=== PATIENT | female | born 2000 | race African-American/Black ===

== ENCOUNTER 2020-03-11 22:54 | Emergency (ER) | payer OTHER, SELFPAY ==
--- NOTE | ~2020-03-11 | US_ITS ---
EXAMINATION: US OB <= 14 weeks fetus DATE: 03/12/2020 00:48 INDICATION: Vaginal bleeding during first trimester of . TECHNIQUE: Real-time pelvic ultrasound utilizing both a transvaginal and transabdominal probe was pe rformed. The interpreting radiologist was not present for the study. COMPARISON: None. FINDINGS: The uterus measures 10.3 x 6.3 x 8.1 cm. There is an intrauterine gestational sac. A yolk sac and fe john pole are identified. The crown rump length measures 2.0 cm, which correlates with an estimated ge stational age of 8 weeks and 4 days. heart motion is identified measuring 183 beats per minute (bpm) by M-mode Doppler. The right ovary measures 4.7 x 2.2 x 3.5 cm. 3.3 x 2.1 x 2.8 cm anechoic corpus luteum cyst in the ri ght ovary. The left ovary measures 3.2 x 1.9 x 2.8 cm. Vascular flow identified on color Doppler to b oth ovaries. There is no free fluid in the pelvis. IMPRESSION: 1. Single living fetus with heart rate of 183 BPM. 2. Gestational age by ultrasound of 8 weeks 4 day(s) +/- 5 day(s) with ultrasound estimated date of delivery (GISELL) of 10/18/2020. Reviewed, dictated and finalized at location A. IMPRESSION: 1. Single living fetus with heart rate of 183 BPM. 2. Gestational age by ultrasound of 8 weeks 4 day(s) +/- 5 day(s) with ultraso und estimated date of delivery (GISELL) of 10/18/2020.
[2020-03-11 23:03] VITALS: BP 129/63; PULSE 86; RESP 18; TEMP 36.4; O2SAT 100
--- NOTE | 2020-03-11 23:56 | ED.FEMALEGU ---
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 Patient states she began to have some vaginal bleeding described as spotting this evening. Patient states that she is with positive home test 2 weeks ago states last menstrual cycle was January 29, 2020. Patient is and is followed by Dr. Mohan denies any fevers or chills abdominal pain or any other symptoms Related Data Home Medications Medication Instructions Recorded Confirmed No Home Medications 03/11/20 03/11/20 Allergies Allergy/AdvReac Type Severity Reaction Status Date / Time No Known Allergies Allergy Verified 03/11/20 23:06 Review of Systems Review of Systems: Narrative: Gen.: Denies fevers or chills ENT: Denies congestion Respiratory: Denies shortness of breath or cough CV: Denies chest pain or palpitations GI: Denies abdominal pain nausea, emesis or diarrhea see HPI Musculoskeletal: Denies back pain or muscle pain Neuro: Denies numbness, tingling, weakness or focal weakness Skin: Denies rash Except as documented, all other systems reviewed and negative PMFSH Past Medical History Medical History (Updated 03/12/20 @ 02:22 by Jose Tanner DO) Patient denies significant medical history Social History Social History (Updated 03/11/20 @ 23:57 by Jose Tanner DO) Smoking status: Never smoker Gender identity (if verbalized by the patient): Female Exam Narrative: Exam Narrative: APPEARANCE: No acute distress, nontoxic, resting in bed EYES: EOMI HEENT: Normocephalic, atraumatic, OMM RESPIRATORY: No respiratory distress Clear to auscultation bilaterally with no rhonchi wheezing or rales. CARDIOVASCULAR: Regular rate and rhythm without murmurs rubs or gallops. ABDOMINAL: Soft, nontender, nondistended, no rebound or guarding : Normal external exam, small amount of dark red blood in vaginal canal cervix is closed MUSCULOSKELETAl: Moves all extremities. No clubbing, cyanosis or edema. NEURO: Awake and alert. Following commands, speech normal, no focal deficits SKIN:: Warm, dry. No rashes lesions or abrasions PSYCHIATRIC: Normal affect/mood, Course Course Emergency Course: Discussed with patient results of workup and diagnosis. Discussed need for follow-up with primary care, proper use of medication, and reasons to return to the emergency department. Patient understands and agrees to current treatment plan Vital Signs Vital signs: Vital Signs Temperature 97.5 F L 03/11/20 23:03 Pulse Rate 86 03/11/20 23:03 Respiratory Rate 18 03/11/20 23:03 Blood Pressure 129/63 03/11/20 23:03 Pulse Oximetry 100 03/11/20 23:03 Temperature 97.5 F L 03/11/20 23:03 Pulse Rate 86 03/11/20 23:03 Respiratory Rate 18 03/11/20 23:03 Blood Pressure 129/63 03/11/20 23:03 Pulse Oximetry 100 03/11/20 23:03 MDM - Female Genitourinary Lab Data Result diagrams: 03/12/20 01:07 03/12/20 00:30 Labs: Lab Results 03/12/20 03/12/20 03/12/20 Range/Units 00:30 01:07 01:09 WBC 9.1 (4.5-10.0) K/mm3 RBC 4.27 (4.2-5.4) M/mm3 Hgb 11.9 L (12.0-15.0) g/dL Hct 37.7 (37.0-47.0) % MCV 88.3 (80-100) fl MCH 27.9 (26-34) pg MCHC 31.6 L (32-36) g/dl RDW 14.0 (11.5-14.5) % Plt Count 295 (150-375) k/mm3 MPV 10.3 (7.4-10.4) fl Immature Gran % (Auto) 0.2 (0-0.5) % Neut % (Auto) 50.4 (45.5-73.1) % Lymph % (Auto) 41.9 (18.3-44.2) % Deuel % (Auto) 6.3 (2.6-8.5) % Eos % (Auto) 1.0 (0-4.4) % Baso % (Auto) 0.2 (0.2-1.2) % Lymph # (Auto) 3.80 H (0.9-3.2) K/mm3 Deuel # (Auto) 0.6 (0.1-0.6) K/mm3 Eos # (Auto) 0.1 (0-0.3) K/mm3 Baso # (Auto) 0.0 (0.0-0.1) K/mm3 Abs Immat
[2020-03-12 00:48] LABS: Blood Urea Nitrogen 12 mg/dL (7-17); Calcium 8.9 mg/dL (8.4-10.2); Carbon Dioxide 24 mmol/L (22-30); Chloride 105 mmol/L (98-107); Estimated CRCL calculation 178 ml/min; Estimated Glomerular Filt Rate > 60; Glucose 89 mg/dL (65-105); Potassium 3.8 mmol/L (3.4-5.0); Sodium 134 mmol/L (137-145)
[2020-03-12 01:00] VITALS: BP 122/60; PULSE 77; RESP 17; TEMP 36.6; O2SAT 98
[2020-03-12 01:18] LABS: Basophils Percent Auto 0.2 % (0.2-1.2); Eosinophils Absolute Auto 0.1 K/mm3 (0-0.3); Hematocrit 37.7 % (37.0-47.0); Hemoglobin 11.9 g/dL (12.0-15.0); Immature Granulocyte Absolute 0.02 K/mm3 (0.00-0.031); Immature Granulocyte Percent A 0.2 % (0-0.5); Lymphocytes Percent Auto 41.9 % (18.3-44.2); Mean Corpuscular HGB Conc 31.6 g/dl (32-36); Mean Corpuscular Hemoglobin 27.9 pg (26-34); Mean Corpuscular Volume 88.3 fl (80-100); Mean Platelet Volume 10.3 fl (7.4-10.4); Monocytes Absolute Auto 0.6 K/mm3 (0.1-0.6); Monocytes Percent Auto 6.3 % (2.6-8.5); Neutrophils Absolute Auto 4.6 K/mm3 (1.3-6.7); Neutrophils Percent Auto 50.4 % (45.5-73.1); Platelet Count Result 295 k/mm3 (150-375); Red Blood Count 4.27 M/mm3 (4.2-5.4); White Blood Count 9.1 K/mm3 (4.5-10.0)
--- NOTE | 2020-03-12 01:47 | PC.NURSE ---
Called lab about pt blood bank results. States results should return in 30 minutes
[2020-03-12 02:45] VITALS: BP 122/67; PULSE 81; RESP 19; TEMP 36.7; O2SAT 99
== END 2020-03-12 02:45 | disposition home or self-care (01) ==
PROVIDERS: Emergency Provider Emergency Medicine; PCP Obstetrics & Gynecology
DX: O20.0 Threatened abortion (principal); Z3A.08 8 weeks gestation of pregnancy
CPT/HCPCS: 36415; 76801; 80048; 81025; 84702; 85025; 85461; 99284